=== PATIENT | male | born 1950 | race Caucasian/White ===

== ENCOUNTER → 2016-12-31 | Outpatient (CLI) | payer MEDICARE, OTHER ==
[~2016-12-31] MED LIST: ADVAIR DIS14 PUFF/IN INH; ASPIRIN81 MG PO; BREO ELLIPTA 21 EACH INH; CELEBREX200 MG PO; COZAAR100 MG PO; CRESTOR5 MG PO; EPIPEN0.3 MG/0.3 INJECT; FOLIC ACID1 MG PO; HALFPRIN81 MG PO; METHOTREXATE2.5 MG PO; OMEPRAZOLE20 MG PO; PREDNISONE5 MG PO; PROAIR HFA8.5 GM INH; SYNTHROID125 MCG PO; TIMOPTIC 0.5%1 EACH EYERT; VIAGRA100 MG PO; VITAMIN D31000 UNI1 PO; XALATAN 0.005%2.5 ML EYEBOTH
== END | disposition short-term general hospital (02) ==
LOC: CLRHEU 09:23
DX: M25.50 Pain in unspecified joint (principal)

== ENCOUNTER → 2017-01-20 | Outpatient (CLI) | payer MEDICARE, OTHER | END | disposition short-term general hospital (02) | LOC: CLRHEU 08:40 | DX: Z51.81 Encounter for therapeutic drug level monitoring (principal); M06.9 Rheumatoid arthritis, unspecified; M35.3 Polymyalgia rheumatica; Z79.899 Other long term (current) drug therapy ==